=== PATIENT | male | born 1960 | race Caucasian/White ===

== ENCOUNTER → 2018-01-21 | Outpatient (REF) | payer BC ==
[~2018-01-21] MED LIST: ATOR10TA24 PO; DOCU-416 PO; FINA5TAB67 PO; MULT-865 PO; OXYC-373 PO; TAMS0.4C25 PO
== END ==
LOC: ZZSENDIN 08:55
PROVIDERS: ATTEND Family Medicine
DX: F52.21 Male erectile disorder (principal)
CPT/HCPCS: 84403